=== PATIENT | female | born 1985 | race Asian ===

== ENCOUNTER 2020-11-15 10:02 | Emergency (ER) | payer OTHER ==
[~2020-11-15] VITALS: Ht 154.9 cm; Wt 59.0 kg
[2020-11-15 10:05] VITALS: BP 118/71
--- NOTE | 2020-11-15 10:38 | NUR ---
COVID TEST SENT TO LAB.
== END 2020-11-15 10:38 | disposition home or self-care (01) ==
LOC: ER 10:28
DX: Z20.822 Contact with and (suspected) exposure to COVID-19 (principal)
CPT/HCPCS: 99283; C9803; U0003

== ENCOUNTER 2020-11-29 10:49 | Emergency (ER) | payer OTHER ==
[~2020-11-29] VITALS: Ht 162.6 cm; Wt 71.2 kg
[2020-11-29 11:03] VITALS: BP 121/79
== END 2020-11-29 11:22 | disposition home or self-care (01) ==
LOC: ER 10:51
DX: Z20.822 Contact with and (suspected) exposure to COVID-19 (principal)
CPT/HCPCS: 99283; C9803; U0003